=== PATIENT | female | born 1945 | race Caucasian/White ===

== ENCOUNTER 2019-03-23 18:00 | Emergency (ER) | payer OTHER, MEDICARE, SELFPAY ==
[2019-03-23 18:04] VITALS: BP 197/95; PULSE 96; RESP 20; TEMP 37.3; O2SAT 96
--- NOTE | 2019-03-23 19:08 | DI.CT.S_ITS ---
PROCEDURE: CT HEAD/BRAIN WO CON INDICATIONS: glf TECHNIQUE: Noncontrast 4.5 mm thick angled axial sections acquired from the foramen magnum to the vertex, with coronal and sagittal reformats. For radiation dose reduction, the following was used: automated exposure control, adjustment of mA and/or kV according to patient size. COMPARISON: None. FINDINGS: Image quality: Excellent. CSF spaces: Basal cisterns are patent. No extra-axial fluid collections. The ventricles are symmetric in size and shape. Brain: No intracranial bleeds or masses. There is cerebral volume loss for age, with resultant ventricular and sulcal prominence. There are periventricular and deep white matter chronic small vessel ischemic changes. There is intracranial internal carotid artery atherosclerosis. Skull and face: Calvarium and visualized facial bones appear intact, without suspicious lesions. Mild soft tissue swelling overlying the left cheek/maxilla. No underlying fractures. Sinuses: Visualized sinuses and mastoids are clear. IMPRESSION: No acute intracranial abnormalities. Left cheek/maxillary soft tissue swelling without underlying fractures. Dictated by: Mason Burden M.D. on 03/23/2019 at 19:42 Approved by: Mason Burden M.D. on 03/23/2019 at 19:44
--- NOTE | 2019-03-23 19:08 | DI.CT.S_ITS ---
PROCEDURE: CT FACIAL BONES WO CON INDICATIONS: glf TECHNIQUE: Noncontrast 2.5 mm thick axial images acquired from the mandible through the frontal sinuses, with coronal and sagittal reformatting. For radiation dose reduction, the following was used: automated exposure control, adjustment of mA and/or kV according to patient size. COMPARISON: None. FINDINGS: Image quality: Excellent. Bones and teeth: Orbital delgadillo are intact. Sinus delgadillo show no fracture or deformity. Nasal bones and septum are intact. Visualized portions of the mandible demonstrate no fractures or subluxation. Zygomatic arches are intact. Pterygoid plates are intact. Visualized portions of the skull base and auditory canals are intact. Bilateral TMJ arthrosis. Sinuses: Paranasal sinuses are aerated, without fluid levels, mucosal thickening, or mucoceles. Mastoid air cells are aerated. Soft tissues: There is soft tissue edema/contusion overlying the left cheek and maxilla with likely overlying soft tissue laceration. No enlarged lymph nodes. No soft tissue lacerations or debris. Vascular: Visualized vascular structures appear normal in the absence of contrast. Bony vascular foramina and canals are intact. IMPRESSION: Soft tissue injury overlying the left cheek and maxillary region without underlying facial fractures. Dictated by: Mason Burden M.D. on 03/23/2019 at 19:44 Approved by: Mason Burden M.D. on 03/23/2019 at 19:47
--- NOTE | 2019-03-23 21:38 | ED.WOUNDLAC ---
HPI - Wound/Laceration <CHIVO Lehman - Last Filed: 03/23/19 22:46> General Chief Complaint: Wound/Laceration Stated Complaint: Lft cheek cut Time Seen by Provider: 03/23/19 18:57 Source: patient and family Mode of arrival: ambulatory Limitations: no limitations History of Present Illness HPI narrative: The patient is a 73-year-old female with history of anemia and AVR not blood thinners nonsmoker who presents with a chief complaint of laceration to the left side of her cheek. She states she had a ground level fall while gardening and hit her head on a rock. She does not know when her last tetanus was. She loss of conscious, nausea vomiting confusion or weakness. she has not washed it out. She denies any chest pain shortness of breath or other injury. she states that she has some swelling and bruising around her eye, but denies any visual deficit. She denies any neck pain or back pain. Review of Systems <CHIVO Lehman - Last Filed: 03/23/19 22:46> Review of Systems GENERAL: Denies chills, fatigue, malaise, fever, sweats. HEENT: See HPI RESPIRATORY: Denies dyspnea, cough, wheezing, hemoptysis, sputum. CARDIOVASCULAR: Denies chest pain, palpitations, orthopnea, edema, GASTROINTESTINAL: Denies nausea, vomiting, abdominal pain, diarrhea, constipation, melena. : Denies dysuria, frequency, incontinence, hematuria, urinary retention. MUSCULOSKELETAL: denies weakness, joint pain, or bony pain SKIN: See HPI NEUROLOGIC: Denies weakness, headache, numbness, change in speech, confusion, seizures, incoordination. PSYCHIATRIC: No concerning psychosocial issues. 12 point review of systems is negative except for those stated above PFSH <CHIVO Lehman - Last Filed: 03/23/19 22:46> Surgical History History of aortic valve replacement (03/20/16) Status post appendectomy Family History (Updated 05/01/17 @ 00:00 by Conversion Provider) Brother Heart disease Grandfather Heart disease Grandfather Stroke Social History Smoking Status: Never smoker Family History Brother Heart disease Grandfather Heart disease Grandfather Stroke Social History Smoking Status: Never smoker Exam <CHIVO Lehman - Last Filed: 03/23/19 22:46> Narrative Exam Narrative: GENERAL: Elderly female lying on stretcher HEAD: Atraumatic. Normocephalic. No temporal or scalp tenderness. no pain to palpation the facial bones other than laceration. EYES: Pupils equal round and reactive. Extraocular motions intact. No scleral icterus. No injection or drainage. no nystagmus. ENT: Nose without bleeding, purulent drainage or septal hematoma. Throat without erythema, tonsillar hypertrophy or exudate. Uvula midline. Airway patent. NECK: Trachea midline. No JVD or lymphadenopathy. Supple, nontender, no meningeal signs. CARDIOVASCULAR: Regular rate and rhythm without murmurs, gallops, or rubs. RESPIRATORY: Clear to auscultation. Breath sounds equal bilaterally. No wheezes, rales, or rhonchi. No cough. No increased respiratory effort. GASTROINTESTINAL: Abdomen soft, non-tender, nondistended. No hepato-splenomegaly, or palpable masses. No guarding. EXTREMITIES: No clubbing, cyanosis, or edema. No joint tenderness, effusion, or edema noted. BACK: Nontender without deformity or crepitance. No flank tenderness. no pain to C-spine or spinal palpation. NEURO: AOx3. Strength is equal upper and lower extremities bilaterally. Stable gait. No gross cranial nerve deficit. Patient has lid lag on the left side. States this is normal for her. SKIN: 2 cm laceration distal to left eye. Periorbital ecchymosis noted left eye. Laceration is through the dermis. No obvious muscle or tendon involvement. No obvious foreign body. Initial Vital Signs Initial Vital Signs: Vital Signs Temperature 99.2 F 03/23/19 18:04 Pulse Rate 96 H 03/23/19 18:04 Respiratory Rate 20 03/23/19 18:04 Blood Pressure 197/95 H 03/23/19 18:04 Pulse Oximetry 96 03/23/19 18:04 <Sudhir Herrmann DO - Last Filed: 03/24/19 08:16> Initial Vital Signs Initial Vital Signs: Vital Signs Temperature 99.2 F 03/23/19 18:04 Pulse Rate 96 H 03/23/19 18:04 Respiratory Rate 20 03/23/19 18:04 Blood Pressure 197/95 H 03/23/19 18:04 Pulse Oximetry 96 03/23/19 18:04 Procedures <CHIVO Lehman - Last Filed: 03/23/19 22:46> Laceration Repair Laceration 1: Site: face Side (If applicable): left Size (cm): 2 Description: linear Depth: simple, single layer Pre-repair: wound explored and irrigated extensively (With sterile water, cleansed with Hibiclens) Skin layer closed with: dermabond Scores <BHARGAVI Lehman - Last Filed: 03/23/19 22:46> Nexus Score for C-Spine Focal Neurologic deficit present: No Midline spinal tenderness present: No Altered level of conciousness present: No Intoxication present: No Distracting Injury Present: No Nexus Criteria for C-spine: 0 Course <BHARGAVI Lehman - Last Filed: 03/23/19 22:46> Orders Ordered: Discontinued Medications Diphtheria/Tetanus/Acell Pertussis (Adacel) 0.5 ml IM .ONCE ONE Stop: 03/23/19 18:58 Last Admin: 03/23/19 19:09 Dose: Not Given Vital Signs - 8 hr 03/23/19 18:04 03/23/19 22:12 Temperature 99.2 F Pulse Rate 96 H 74 Respiratory Rate 20 14 Blood Pressure 197/95 H 187/79 H Pulse Oximetry 96 96 <Sudhir Herrmann DO - Last Filed: 03/24/19 08:16> Orders Ordered: Discontinued Medications Diphtheria/Tetanus/Acell Pertussis (Adacel) 0.5 ml IM .ONCE ONE Stop: 03/23/19 18:58 Last Admin: 03/23/19 19:09 Dose: Not Given Vital Signs - 8 hr 03/23/19 18:04 03/23/19 22:12 Temperature 99.2 F Pulse Rate 96 H 74 Respiratory Rate 20 14 Blood Pressure 197/95 H 187/79 H Pulse Oximetry 96 96 MDM - Wound/Laceration <BHARGAVI Lehman - Last Filed: 03/23/19 22:46> Imaging Data Face CT: Radiologist's impression: Hortensia Watkins 73 F [address] [address] [address] Scan Report Signed Patient: Hortensia Watkins [facility]#: [id number] : 5Acct:[id number] Age/Sex: 73 / FDate of Service: 03/23/19 Loc: ED Accession Number: [id number] Procedure: CT facial bones wo con [facility]ing [facility] PROCED[facility]: CT FACIAL BONES WO CON INDICATIONS: glf TECHNIQUE: Noncontrast 2.5 mm thick axial images acquired from the mandible through the frontal sinuses, with coronal and sagittal reformatting. For radiation dose reduction, the following was used: automated exposure control, adjustment of mA and/or kV according to patient size. COMPARISON: None. FINDINGS: Image quality: Excellent. Bones and teeth: Orbital delgadillo are intact. Sinus delgadillo show no fracture or deformity. Nasal bones and septum are intact. Visualized portions of the mandible demonstrate no fractures or subluxation. Zygomatic arches are intact. Pterygoid plates are intact. Visualized portions of the skull base and auditory canals are intact. Bilateral TMJ arthrosis. Sinuses: Paranasal sinuses are aerated, without fluid levels, mucosal thickening, or mucoceles. Mastoid air cells are aerated. Soft tissues: There is soft tissue edema/contusion overlying the left cheek and maxilla with likely overlying soft tissue laceration. No enlarged lymph nodes. No soft tissue lacerations or debris. Vascular: Visualized vascular structures appear normal in the absence of contrast. Bony vascular foramina and canals are intact. IMPRESSION: Soft tissue injury overlying the left cheek and maxillary region without underlying facial fractures. Dictated by: Mason Burden M.D. on 03/23/2019 at 19:44 Approved by: Mason Burden M.D. on 03/23/2019 at 19:47 CT scan - head: Radiologist's impression: [address] [address] [address] Scan Report Signed Patient: Hortensia Watkins [facility]#: [id number] : 5Acct:[id number] Age/Sex: 73 / FDate of Service: 03/23/19 Loc: ED Accession Number: [id number] Procedure: CT head/brain wo con Ordering Provider: Lexi Anton PROCEDURE: CT HEAD/BRAIN WO CON INDICATIONS: glf TECHNIQUE: Noncontrast 4.5 mm thick angled axial sections acquired from the foramen magnum to the vertex, with coronal and sagittal reformats. For radiation dose reduction, the following was used: automated exposure control, adjustment of mA and/or kV according to patient size. COMPARISON: None. FINDINGS: Image quality: Excellent. CSF spaces: Basal cisterns are patent. No extra-axial fluid collections. The ventricles are symmetric in size and shape. Brain: No intracranial bleeds or masses. There is cerebral volume loss for age, with resultant ventricular and sulcal prominence. There are periventricular and deep white matter chronic small vessel ischemic changes. There is intracranial internal carotid artery atherosclerosis. Skull and face: Calvarium and visualized facial bones appear intact, without suspicious lesions. Mild soft tissue swelling overlying the left cheek/maxilla. No underlying fractures. Sinuses: Visualized sinuses and mastoids are clear. IMPRESSION: No acute intracranial abnormalities. Left cheek/maxillary soft tissue swelling without underlying fractures. Dictated by: Mason Burden M.D. on 03/23/2019 at 19:42 Approved by: Mason Burden M.D. on 03/23/2019 at 19:44 MDM Narrative Medical decision making narrative: The patient is a 73-year-old female who presents with laceration to her face after ground level fall. She has a normal head CT, normal face CT. We did offer to update her tetanus, but she stated she would rather follow up with her PCP for TD rather than Tdap. I did discuss at length with her that I thought she would have a rider cause medic result if she elected for sutures rather than Dermabond. However the patient elected for Dermabond wound closure. Given the laceration was linear and well-approximated I am okay with this. It was cleansed and closed as in procedural note. Discussed at length monitor for signs and symptoms of infection including redness, pus and fever. Patient has no questions or concerns upon discharge. discussed return precautions of confusion, altered mental status etc. Discharge Plan Departure Patient Disposition: Home Clinical Impression: Fall from ground level, Laceration Periorbital ecchymosis Qualifiers: Encounter type: initial encounter Laterality: left Qualified Code(s): S00.12XA - Contusion of left eyelid and periocular area, initial encounter Discharge Date/Time: 03/23/19 22:12 Interventions: ED Discharge Assessment Last Done: 03/23/19 22:12 Instructions: DI for Eye Contusion, DI for Laceration Repair With Dermabond, How to Prevent Falls Activity Restrictions/Additional Instructions: I applied Dermabond to your cut. Please monitor for signs and symptoms of infection such as redness pus and fever. Please follow up with primary care provider. Please use [id number] pain medications as needed and able. Please use ice. Please come back to emergency department for any acute concerns such as chest pain shortness of breath concern of stroke Or confusion Referrals: Dagoberto Johansen MD [Primary Care Provider] - <Sudhir Herrmann DO - Last Filed: 03/24/19 08:16> Cosign ED Attending Wilfredo Attestation: I was immediately available in the department for consultation. Documentation has been reviewed. I agree with assessment and plan.
[2019-03-23 22:12] VITALS: BP 187/79; PULSE 74; RESP 14; O2SAT 96
--- NOTE | 2019-03-23 22:46 | ED_ITS ---
HPI - Wound/Laceration <CHIVO Lehman - Last Filed: 03/23/19 22:46> General Chief Complaint: Wound/Laceration Stated Complaint: Lft cheek cut Time Seen by Provider: 03/23/19 18:57 Source: patient and family Mode of arrival: ambulatory Limitations: no limitations History of Present Illness HPI narrative: The patient is a 73-year-old female with history of anemia and AVR not blood thinners nonsmoker who presents with a chief complaint of laceration to the left side of her cheek. She states she had a ground level fall while gardening and hit her head on a rock. She does not know when her last tetanus was. She loss of conscious, nausea vomiting confusion or weakness. she has not washed it out. She denies any chest pain shortness of breath or other injury. she states that she has some swelling and bruising around her eye, but denies any visual deficit. She denies any neck pain or back pain. Review of Systems <CHIVO Lehman - Last Filed: 03/23/19 22:46> Review of Systems GENERAL: Denies chills, fatigue, malaise, fever, sweats. HEENT: See HPI RESPIRATORY: Denies dyspnea, cough, wheezing, hemoptysis, sputum. CARDIOVASCULAR: Denies chest pain, palpitations, orthopnea, edema, GASTROINTESTINAL: Denies nausea, vomiting, abdominal pain, diarrhea, constipation, melena. : Denies dysuria, frequency, incontinence, hematuria, urinary retention. MUSCULOSKELETAL: denies weakness, joint pain, or bony pain SKIN: See HPI NEUROLOGIC: Denies weakness, headache, numbness, change in speech, confusion, seizures, incoordination. PSYCHIATRIC: No concerning psychosocial issues. 12 point review of systems is negative except for those stated above PFSH <CHIVO Lehman - Last Filed: 03/23/19 22:46> Surgical History History of aortic valve replacement (03/20/16) Status post appendectomy Family History (Updated 05/01/17 @ 00:00 by Conversion Provider) Brother Heart disease Grandfather Heart disease Grandfather Stroke Social History Smoking Status: Never smoker Family History Brother Heart disease Grandfather Heart disease Grandfather Stroke Social History Smoking Status: Never smoker Exam <CHIVO Lehman - Last Filed: 03/23/19 22:46> Narrative Exam Narrative: GENERAL: Elderly female lying on stretcher HEAD: Atraumatic. Normocephalic. No temporal or scalp tenderness. no pain to palpation the facial bones other than laceration. EYES: Pupils equal round and reactive. Extraocular motions intact. No scleral icterus. No injection or drainage. no nystagmus. ENT: Nose without bleeding, purulent drainage or septal hematoma. Throat without erythema, tonsillar hypertrophy or exudate. Uvula midline. Airway patent. NECK: Trachea midline. No JVD or lymphadenopathy. Supple, nontender, no meningeal signs. CARDIOVASCULAR: Regular rate and rhythm without murmurs, gallops, or rubs. RESPIRATORY: Clear to auscultation. Breath sounds equal bilaterally. No wheezes, rales, or rhonchi. No cough. No increased respiratory effort. GASTROINTESTINAL: Abdomen soft, non-tender, nondistended. No hepato- splenomegaly, or palpable masses. No guarding. EXTREMITIES: No clubbing, cyanosis, or edema. No joint tenderness, effusion, or edema noted. BACK: Nontender without deformity or crepitance. No flank tenderness. no pain to C-spine or spinal palpation. NEURO: AOx3. Strength is equal upper and lower extremities bilaterally. Stable gait. No gross cranial nerve deficit. Patient has lid lag on the left side. States this is normal for her. SKIN: 2 cm laceration distal to left eye. Periorbital ecchymosis noted left eye. Laceration is through the dermis. No obvious muscle or tendon involvement. No obvious foreign body. Initial Vital Signs Initial Vital Signs: Vital Signs Temperature 99.2 F 03/23/19 18:04 Pulse Rate 96 H 03/23/19 18:04 Respiratory Rate 20 03/23/19 18:04 Blood Pressure 197/95 H 03/23/19 18:04 Pulse Oximetry 96 03/23/19 18:04 <Sudhir Herrmann DO - Last Filed: 03/24/19 08:16> Initial Vital Signs Initial Vital Signs: Vital Signs Temperature 99.2 F 03/23/19 18:04 Pulse Rate 96 H 03/23/19 18:04 Respiratory Rate 20 03/23/19 18:04 Blood Pressure 197/95 H 03/23/19 18:04 Pulse Oximetry 96 03/23/19 18:04 Procedures <CHIVO Lehman - Last Filed: 03/23/19 22:46> Laceration Repair Laceration 1: Site: face Side (If applicable): left Size (cm): 2 Description: linear Depth: simple, single layer Pre-repair: wound explored and irrigated extensively (With sterile water, cleansed with Hibiclens) Skin layer closed with: dermabond Scores <BHARGAVI Lehman - Last Filed: 03/23/19 22:46> Nexus Score for C-Spine Focal Neurologic deficit present: No Midline spinal tenderness present: No Altered level of conciousness present: No Intoxication present: No Distracting Injury Present: No Nexus Criteria for C-spine: 0 Course <BHARGAVI Lehman - Last Filed: 03/23/19 22:46> Orders Ordered: Discontinued Medications Diphtheria/Tetanus/Acell Pertussis (Adacel) 0.5 ml IM .ONCE ONE Stop: 03/23/19 18:58 Last Admin: 03/23/19 19:09 Dose: Not Given Vital Signs - 8 hr 03/23/19 18:04 03/23/19 22:12 Temperature 99.2 F Pulse Rate 96 H 74 Respiratory Rate 20 14 Blood Pressure 197/95 H 187/79 H Pulse Oximetry 96 96 <Sudhir Herrmann DO - Last Filed: 03/24/19 08:16> Orders Ordered: Discontinued Medications Diphtheria/Tetanus/Acell Pertussis (Adacel) 0.5 ml IM .ONCE ONE Stop: 03/23/19 18:58 Last Admin: 03/23/19 19:09 Dose: Not Given Vital Signs - 8 hr 03/23/19 18:04 03/23/19 22:12 Temperature 99.2 F Pulse Rate 96 H 74 Respiratory Rate 20 14 Blood Pressure 197/95 H 187/79 H Pulse Oximetry 96 96 MDM - Wound/Laceration <BHARGAVI Lehman - Last Filed: 03/23/19 22:46> Imaging Data Face CT: Radiologist's impression: Hortensia Watkins 73 F [address] [address] [address] Scan Report Signed Patient: Hortensia Watkins [facility]#: [id number] : 5Acct:[id number] Age/Sex: 73 / FDate of Service: 03/23/19 Loc: ED Accession Number: [id number] Procedure: CT facial bones wo con [facility]ing [facility]: CT FACIAL BONES WO CON INDICATIONS: glf TECHNIQUE: Noncontrast 2.5 mm thick axial images acquired from the mandible through the frontal sinuses, with coronal and sagittal reformatting. For radiation dose reduction, the following was used: automated exposure control, adjustment of mA and/or kV according to patient size. COMPARISON: None. FINDINGS: Image quality: Excellent. Bones and teeth: Orbital delgadillo are intact. Sinus delgadillo show no fracture or deformity. Nasal bones and septum are intact. Visualized portions of the mandible demonstrate no fractures or subluxation. Zygomatic arches are intact. Pterygoid plates are intact. Visualized portions of the skull base and auditory canals are intact. Bilateral TMJ arthrosis. Sinuses: Paranasal sinuses are aerated, without fluid levels, mucosal thickening, or mucoceles. Mastoid air cells are aerated. Soft tissues: There is soft tissue edema/contusion overlying the left cheek and maxilla with likely overlying soft tissue laceration. No enlarged lymph nodes. No soft tissue lacerations or debris. Vascular: Visualized vascular structures appear normal in the absence of contrast. Bony vascular foramina and canals are intact. IMPRESSION: Soft tissue injury overlying the left cheek and maxillary region without underlying facial fractures. Dictated by: Mason Burden M.D. on 03/23/2019 at 19:44 Approved by: Mason Burden M.D. on 03/23/2019 at 19:47 CT scan - head: Radiologist's impression: [address] [address] [address] Scan Report Signed Patient: Hortensia Watkins [facility]#: [id number] : 5Acct:[id number] Age/Sex: 73 / FDate of Service: 03/23/19 Loc: ED Accession Number: [id number] Procedure: CT head/brain wo con Ordering Provider: Lexi Anton PROCEDURE: CT HEAD/BRAIN WO CON INDICATIONS: glf TECHNIQUE: Noncontrast 4.5 mm thick angled axial sections acquired from the foramen magnum to the vertex, with coronal and sagittal reformats. For radiation dose reduction, the following was used: automated exposure control, adjustment of mA and/or kV according to patient size. COMPARISON: None. FINDINGS: Image quality: Excellent. CSF spaces: Basal cisterns are patent. No extra-axial fluid collections. The ventricles are symmetric in size and shape. Brain: No intracranial bleeds or masses. There is cerebral volume loss for age, with resultant ventricular and sulcal prominence. There are periventricular and deep white matter chronic small vessel ischemic changes. There is intracranial internal carotid artery atherosclerosis. Skull and face: Calvarium and visualized facial bones appear intact, without suspicious lesions. Mild soft tissue swelling overlying the left cheek/maxilla. No underlying fractures. Sinuses: Visualized sinuses and mastoids are clear. IMPRESSION: No acute intracranial abnormalities. Left cheek/maxillary soft tissue swelling without underlying fractures. Dictated by: Mason Burden M.D. on 03/23/2019 at 19:42 Approved by: Mason Burden M.D. on 03/23/2019 at 19:44 MDM Narrative Medical decision making narrative: The patient is a 73-year-old female who presents with laceration to her face after ground level fall. She has a normal head CT, normal face CT. We did offer to update her tetanus, but she stated she would rather follow up with her PCP for TD rather than Tdap. I did discuss at length with her that I thought she would have a rider cause medic result if she elected for sutures rather than Dermabond. However the patient elected for Dermabond wound closure. Given the laceration was linear and well-approximated I am okay with this. It was cleansed and closed as in procedural note. Discussed at length monitor for signs and symptoms of infection including redness, pus and fever. Patient has no questions or concerns upon discharge. discussed return precautions of confusion, altered mental status etc. Discharge Plan Departure Patient Disposition: Home Clinical Impression: Fall from ground level, Laceration Periorbital ecchymosis Qualifiers: Encounter type: initial encounter Laterality: left Qualified Code(s): S00.12XA - Contusion of left eyelid and periocular area, initial encounter Discharge Date/Time: 03/23/19 22:12 Interventions: ED Discharge Assessment Last Done: 03/23/19 22:12 Instructions: DI for Eye Contusion, DI for Laceration Repair With Dermabond, How to Prevent Falls Activity Restrictions/Additional Instructions: I applied Dermabond to your cut. Please monitor for signs and symptoms of infection such as redness pus and fever. Please follow up with primary care provider. Please use [id number] pain medications as needed and able. Please use ice. Please come back to emergency department for any acute concerns such as chest pain shortness of breath concern of stroke Or confusion Referrals: Dagoberto Johansen MD [Primary Care Provider] - <Sudhir Herrmann DO - Last Filed: 03/24/19 08:16> Cosign ED Attending Wilfredo Attestation: I was immediately available in the department for consultation. Documentation has been reviewed. I agree with assessment and plan.
== END 2019-03-23 22:12 | disposition home or self-care (01) ==
PROVIDERS: Emergency Provider Nurse Practitioner Family; PCP Family Medicine
DX: S09.90XA Unspecified injury of head, initial encounter (principal); S01.412A Laceration without foreign body of left cheek and temporomandibular area, initial encounter; W18.39XA Other fall on same level, initial encounter
CPT/HCPCS: 70450; 70486; 99283; 99284

== ENCOUNTER → 2023-01-05 09:59 | Outpatient (CLI) | payer MEDICARE, SELFPAY | PROVIDERS: PCP Naturopath; Referring Provider Naturopath; Visit Provider Nurse Practitioner Family | DX: I87.2 Venous insufficiency (chronic) (peripheral) (principal); R60.9 Edema, unspecified | CPT/HCPCS: 99203; 99213 ==

== ENCOUNTER → 2025-07-28 16:00 | Outpatient (CLI) | payer MEDICARE, SELFPAY | PROVIDERS: PCP Naturopath; Referring Provider Dermatology; Visit Provider Dermatology | DX: L03.90 Cellulitis, unspecified (principal); L90.9 Atrophic disorder of skin, unspecified; L53.9 Erythematous condition, unspecified; Z79.899 Other long term (current) drug therapy | CPT/HCPCS: 87070; 87075; 87077; 87102; 87147; 87185; 87186; 87205 ==

== ENCOUNTER → 2025-07-30 12:34 | Outpatient (CLI) | payer MEDICARE, SELFPAY ==
[2025-07-30 12:57] LABS: Add Manual Diff / Slide Review NO; Hematocrit 35.0 % (36-46); Hemoglobin 11.3 g/dL (12.0-16.0); Lymphocytes Absolute Auto 800 /uL (1100-4500); Mean Corpuscular HGB Conc 32.4 % (30-36); Mean Corpuscular Hemoglobin 27.5 PG (26-34); Mean Corpuscular Volume 85.0 fL (80-100); Platelet Count 279 X10^3/uL (150-400)
[2025-07-30 13:07] LABS: Appearance Urine UA CLEAR; Bilirubin Urine UA NEGATIVE (NEGATIVE); Color Urine UA YELLOW; Glucose Urine UA NEGATIVE (Negative); Ketones Urine UA NEGATIVE (NEGATIVE); Leukocyte Esterase Urine UA 1+ (NEGATIVE); Nitrite Urine UA NEGATIVE (Negative); Occult Blood Urine UA 1+ (Negative); Protein Urine UA NEGATIVE (Negative); Specific Gravity Urine UA 1.025 (1.000-1.035); Urobilinogen Urine UA 0.2 E.U./dL (0.2)
[2025-07-30 13:12] LABS: pH Urine UA 5.5 (4.5-8.0)
[2025-07-30 13:19] LABS: Culture Indicated Urine Specimen Cultured
[2025-07-30 13:24] LABS: Alanine Aminotransferase 20 IU/L (<35); Albumin 3.8 g/dL (3.5-5.0); Albumin Globulin Ratio 1.0 (1.0-2.8); Alkaline Phosphatase 101 U/L (38-126); Blood Urea Nitrogen 19 mg/dL (7-17); Calcium 9.4 mg/dL (8.4-10.2); Carbon Dioxide 28 mmol/L (22-32); Chloride 99 mmol/L (98-107); Estimated Glomerular Filt Rate > 60 mL/min (>60); Globulin 4.0 g/dL (1.7-4.1); Glucose 122 mg/dL (70-99); HEMOLYSIS < 15 (0-50); Potassium 4.9 mmol/L (3.4-5.1); Sodium 136 mmol/L (137-145); Total Protein 7.8 g/dL (6.3-8.2)
[2025-08-02 17:36] LABS: Free Kappa Lt Chains, Serum 65.3 mg/L (3.3-19.4); Free Lambda Lt Chains,Serum 55.3 mg/L (5.7-26.3)
[2025-08-03 10:08] LABS: ANA Screen, IFA Negative (.)
[2025-08-03 15:09] LABS: Albumin 3.2 g/dL (2.9-4.4); Alpha-1-Globulin 0.3 g/dL (0.0-0.4); Alpha-2-Globulin 0.8 g/dL (0.4-1.0); Gamma Globulin 1.6 g/dL (0.4-1.8)
== END ==
PROVIDERS: PCP Naturopath; Referring Provider Dermatology; Visit Provider Dermatology
DX: L53.8 Other specified erythematous conditions (principal); L53.9 Erythematous condition, unspecified; Z79.899 Other long term (current) drug therapy
CPT/HCPCS: 36415; 80053; 81001; 83883; 84155; 84165; 85025; 85651; 86038; 86140; 87086; 87147; 87186